=== PATIENT | male | born 1955 | race Caucasian/White ===

== ENCOUNTER → 2019-11-01 09:32 | Outpatient (CLI) | payer SELFPAY ==
--- NOTE | 2019-11-01 | DI.US.S_ITS ---
PROCEDURE: US SOFT TISSUE HEAD AND NECK INDICATIONS: Left submadibular swelling TECHNIQUE: Real-time scanning was performed of the neck region of interest, with image documentation. COMPARISON: None. FINDINGS: There is a large ovoid sharp a demarcated mass lesion with internal vascularity measuring up to 3.4 x 2.3 x 2.6 cm in the area of submandibular palpable abnormality. The appearance is worrisome for representing a nonspecific neoplastic process. IMPRESSION: Large ovoid presumed enlarged lymph node measuring up to 3.4 cm in maximal dimension correlates with the area of current submandibular clinical concern. ENT consultation is recommended. Dictated by: Jamie Carpenter M.D. on 11/01/2019 at 10:20 Approved by: Jamie Carpenter M.D. on 11/01/2019 at 10:22
== END ==
PROVIDERS: Referring Provider Physician Assistant; Visit Provider Physician Assistant
DX: R22.0 Localized swelling, mass and lump, head (principal)
CPT/HCPCS: 76536

== ENCOUNTER → 2020-06-28 15:30 | Outpatient (CLI) | payer OTHER, SELFPAY ==
[2020-06-28] MEDS: COVID-19 VACC #1, MRNA(MOD) 100 MCG/0.5 ML VIAL IM (15:35)
== END ==
PROVIDERS: Visit Provider Internal Medicine
DX: Z23 Encounter for immunization (principal)
CPT/HCPCS: 0011A; 91301

== ENCOUNTER → 2020-07-25 15:38 | Outpatient (CLI) | payer OTHER, SELFPAY ==
[2020-07-25] MEDS: COVID-19 VACC #2, MRNA(MOD) 100 MCG/0.5 ML VIAL IM (15:44)
== END ==
PROVIDERS: Visit Provider Internal Medicine
DX: Z23 Encounter for immunization (principal)
CPT/HCPCS: 0012A; 91301